=== PATIENT | female | born 1975 | race Caucasian/White ===

== ENCOUNTER 2022-06-16 18:05 | Emergency (ER) | payer BC, SELFPAY ==
[2022-06-16 18:13] VITALS: BP 147/88; PULSE 112; RESP 18; TEMP 36.8; O2SAT 97; BMI 35.5
--- NOTE | 2022-06-16 20:48 | CRLHL7_ITS ---
For Patients: As a result of the Century Cures Act, medical imaging exams and procedure reports are released immediately into your electronic medical record. You may view this report before your referring provider. If you have questions, please contact your health care provider. INDICATION: Shortness of breath. TECHNIQUE: CT chest PE was acquired with 95 cc Isovue 370 IV contrast. COMPARISON: None. FINDINGS: Heart and vasculature: Contrast opacification of the pulmonary arterial tree is adequate. No sign of pulmonary embolism. Heart size is normal. Thoracic aorta and pulmonary artery are normal in caliber. Lungs and pleura: No suspicious nodules or infiltrates. No pleural effusions, pleural thickening, or pneumothorax. Lymph nodes/mediastinum: No mediastinal, hilar, or axillary adenopathy. Chest wall: No masses. Upper abdomen: No acute or significant findings. Bones: Unremarkable for age. IMPRESSION: No pulmonary embolism, as questioned. Please note that all CT scans at this facility use dose modulation, iterative reconstruction, and/or weight-based dosing when appropriate to reduce radiation dose to as low as reasonably achievable. Dictated by Parish Tolbert MD @ 06/16/2022 9:44:48 PM (Electronically Signed)
--- NOTE | 2022-06-16 20:52 | ED_ITS ---
HPI - SOB/Dyspnea General Time Seen by Provider: 20:52 Date Seen: 06/16/22 Chief Complaint: Shortness of Breath/Dyspnea Stated Complaint: high ddimer Time Seen by Provider: 06/16/22 20:47 Source: patient Mode of arrival: ambulatory Limitations: no limitations History of Present Illness HPI Narrative: patient is a 46-year-old female who is visiting from [place], she presented to urgent care earlier today shortness of breath that she has had ongoing for the past 2-3 weeks, she says it is from being around cats, but that was about a week ago with her last CT episode, she had, feels her nose running, takes a few Benadryl and is a had a cold approximately a week ago, COVID test at home. She is just not getting over this shortness of breath that she has, she feels she can only walk from like here to the car and she will be short of breath, she presented to Urgent Care she was found to be slightly tachycardic in the 110 region, time. And a D-dimer was done is elevated at 13 90, she was sent to the emergency room for further evaluation. She has no previous history of pulmonary emboli DVT is no history of leg swelling, pleuritic pain, chest pain, syncope, significant coughing, blood dyscrasias, malignancy, family history of PEs DVTs or malignancy. Related Data Home Medications Medication Instructions Recorded Confirmed No Known Home Medications 06/16/22 06/16/22 Allergies Allergy/AdvReac Type Severity Reaction Status Date / Time No Known Drug Allergies Allergy Verified 06/16/22 21:03 Review of Systems Status of ROS: Reports: 10 or more systems reviewed and unremarkable except as noted in History and below PFSH [facility] Social History Smoking Status: Never smoker Exam Narrative: Exam Narrative: I saw her in the triage room, she is alert oriented in no apparent distress speaking to me in full sentences and does not appear to be shortness of breath. Her pupils are equal round reactive to light there is no scleral icterus or redness, pharynx is normal, she has a polyp in her left nares, right side appears clear, TMs are normal bilaterally, with approximately 50% occlusion with soft brown cerumen. Chest has good air entry bilaterally with absence of wheezing crackles or Respiratory distress, on forced expiration she does indeed have wheezing. Cardiovascular - S1-S2 are normal there is no S3-S4 clicks murmurs or gallops noted, Abdomen is soft and slightly obese there is no guarding no pedal splenomegaly, HJR is negative, no tenderness to palpation, skin reveals no petechiae are redness, extremities show no swelling pitting edema, negative Homans sign is noted in the legs. Const: Vital Signs, click to edit/add: Vital Signs - 24 hr 06/16/22 18:13 Temperature 98.2 F Pulse Rate [Right Pulse Oximeter] 112 H Respiratory Rate 18 Blood Pressure [Ri ght Upper Arm] 147/88 H Pulse Oximetry 97 Oxygen Delivery Me thod Room Air Course Course Hospital Course: [facility] CT came back showing no evidence of blood clot, I went and discussed this with her, she is wheezy on expiration I believe there is an issue with asthma/bronchospasm here. I think a course of prednisone along with the meter dose inhaler continuing her allergy medication would be helpful. Informed consent risks benefits and side effects of medications are discussed she accepts these would like to proceed. Vital Signs Vital signs: Initial Vital Signs Temperature 98.2 F 06/16/22 18:13 Temperature Source Temporal Artery Scan 06/16/22 18:13 Pulse Rate 112 H 06/16/22 18:13 Respiratory Rate 18 06/16/22 18:13 Blood Pressure 147/88 H 06/16/22 18:13 Blood Pressure Mean 107 06/16/22 18:13 Blood Pressure Position Sitting 06/16/22 18:13 Pulse Oximetry 97 06/16/22 18:13 Oxygen Delivery Method 06/16/22 18:13 Vital Signs Temperature 98.2 F 06/16/22 18:13 Pulse Rate 112 H 06/16/22 18:13 Respiratory Rate 18 06/16/22 18:13 Blood Pressure 147/88 H 06/16/22 18:13 Pulse Oximetry 97 06/16/22 18:13 Oxygen Delivery Method 06/16/22 18:13 Temperature 98.2 F 06/16/22 18:13 Pulse Rate 112 H 06/16/22 18:13 Respiratory Rate 18 06/16/22 18:13 Blood Pressure 147/88 H 06/16/22 18:13 Pulse Oximetry 97 06/16/22 18:13 Oxygen Delivery Method 06/16/22 18:13 MDM - SOB/Dyspnea MDM Narrative Medical decision making narrative: Life-threatening differential diagnosis includes occluded COPD exacerbation, pulmonary edema, acute coronary syndromes, pulmonary embolism, pneumonia, and pneumothorax. Other differential diagnosis considerations include asthma, bronchitis as well as other etiologies Discussed with her with the elevated D-dimer, her history of tachycardia, cannot rule out a PE, I went over the risks benefits and side effects of this, and after informed consent she decided that she would like CT scan, which I am not against, Differential Diagnosis Differential diagnosis: Likely acute exacerbation of chronic obstructive airways disease, congestive heart failure, community acquired pneumonia, asthma with exacerbation and pulmonary embolism Medical Records Attestation: I reviewed the patient's medical records. Lab Data Attestation: I reviewed the patient's lab results. Imaging Data CT scan - chest: Radiologist's impression: Patient: AMOS PENA Facility: [facility] Site . Site : [id number] Study: CT Chest Angio W/ 95CC ISOVUE-370 PE PROTOCOL-06/16/2022 9:24:41 PM Ordering Physician: Gerber Forde Final Report: INDICATION: Shortness of breath. TECHNIQUE: CT chest PE was acquired with 95 cc Isovue 370 IV contrast. COMPARISON: None. FINDINGS: Heart and vasculature: Contrast opacification of the pulmonary arterial tree is adequate. No sign of pulmonary embolism. Heart size is normal. Thoracic aorta and pulmonary artery are normal in caliber. Lungs and pleura: No suspicious nodules or infiltrates. No pleural effusions, pleural thickening, or pneumothorax. Lymph nodes/mediastinum: No mediastinal, hilar, or axillary adenopathy. Chest wall: No masses. Upper abdomen: No acute or significant findings. Bones: Unremarkable for age. IMPRESSION: No pulmonary embolism, as questioned. Please note that all CT scans at this facility use dose modulation, iterative reconstruction, and/or weight-based dosing when appropriate to reduce radiation dose to as low as reasonably achievable. Dictated by Parish Tolbert MD @ 06/16/2022 9:44:48 PM (Electronic Signature) Discharge Plan Discharge Clinical Impression: SOB (shortness of breath) on exertion, Asthma with acute exacerbation, D-dimer, elevated Patient Disposition: Home, Self-Care Condition: Unchanged Instructions: Asthma (DC), Shortness of Breath (ED) Additional Instructions: Discharge home prednisone and an albuterol inhaler, continue with here once daily allergy medication, did her follow-up with ENT for the nasal polyp on the left side, and consider starting Flonase once her done the prednisone. Prescriptions: No Action No Known Home Medications Follow Up/Referrals: Provider,Not a Local [Primary Care Provider] - Stand Alone Forms: [employer] Info Instructions
[2022-06-16] MEDS: 0.9 % SODIUM CHLORIDE 500 ML 500 ML IV (21:00)
== END 2022-06-16 22:24 | disposition home or self-care (01) ==
PROVIDERS: Emergency Provider Family Medicine
DX: J44.1 Chronic obstructive pulmonary disease with (acute) exacerbation (principal)
CPT/HCPCS: 71260; 99284; J7120; Q9967